=== PATIENT | female | born 1975 | race Caucasian/White ===

== ENCOUNTER 2017-05-18 18:01 | Emergency (ER) | payer BC ==
[~2017-05-18] VITALS: Ht 175.3 cm; Wt 113.4 kg
[2017-05-18] MEDS ORDERED: IV NORMAL SALINE 1000ML BAG 1,000 ML IV SCH (18:31)
--- NOTE | 2017-05-18 18:31 | PHYS DOC ---
Past Medical History Past Medical History: Other Additional Past Medical Histor: SQUAMOUS CELL CANCER Past Surgical History: Tonsillectomy, Other Additional Past Surgical Histo: SINUS, PART OF MOUTH REMOVED S/P CANCER, LYMP NODES REMOVED Alcohol Use: None Drug Use: None Adult General Chief Complaint Chief Complaint: ABDOMINAL PAIN HPI HPI Patient is a 41 year old female who presents with left lower flank pain that started at 4:00 today. She states she felt fine up until 4:00 that she started this pain in her left flank that radiates around into her left lower quadrant. She states is constant but it is worse at times. She felt nauseated but has not vomited. She denies any history of kidney stones, she denies any abdominal surgeries. 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 Review of Systems Review of Systems Constitutional: Denies fever or chills [] Eyes: Denies change in visual acuity, redness, or eye pain [] HENT: Denies nasal congestion or sore throat [] Respiratory: Denies cough or shortness of breath [] Cardiovascular: No additional information not addressed in HPI [] GI: Denies abdominal pain, nausea, vomiting, bloody stools or diarrhea [] : Denies dysuria or hematuria [] Musculoskeletal: Denies back pain or joint pain [] Integument: Denies rash or skin lesions [] Neurologic: Denies headache, focal weakness or sensory changes [] Endocrine: Denies polyuria or polydipsia [] All other systems were reviewed and found to be within normal limits, except as documented in this note. Current Medications Current Medications Current Medications Medications (Trade) Dose Ordered Sig/Leela Start Time Stop Time Status Last Admin Dose Admin Ketorolac Tromethamine (Toradol) 30 mg 1X ONCE 05/18/17 20:45 05/18/17 20:47 DC 05/18/17 20:48 30 MG Morphine Sulfate 4 mg PRN Q15MIN PRN 05/18/17 19:00 05/19/17 18:59 05/18/17 19:57 4 MG Ondansetron HCl (Zofran) 4 mg 1X ONCE 05/18/17 19:00 05/18/17 19:01 DC 05/18/17 19:06 4 MG Sodium Chloride 1,000 ml @ 1,000 mls/hr 1X ONCE 05/18/17 20:45 05/18/17 21:44 05/18/17 20:44 1,000 MLS/HR Tamsulosin HCl (Flomax) 0.4 mg 1X ONCE 05/18/17 20:45 05/18/17 20:47 DC 05/18/17 20:48 0.4 MG Allergies Allergies Allergies Coded Allergies Type Severity Reaction Last Updated Verified No Known Drug Allergies 05/18/17 No Physical Exam Physical Exam Constitutional: Well developed, well nourished, no acute distress, non-toxic appearance. [] HENT: Normocephalic, atraumatic, bilateral external ears normal, oropharynx moist, no oral exudates, nose normal. [] Eyes: PERRLA, EOMI, conjunctiva normal, no discharge. [] Neck: Normal range of motion, no tenderness, supple, no stridor. [] Cardiovascular:Heart rate regular rhythm, no murmur [] Lungs & Thorax: Bilateral breath sounds clear to auscultation [] Abdomen: Bowel sounds normal, soft, mild tender palpation in the left flank, no abdominal pain noted, no masses, no pulsatile masses. [] Skin: Warm, dry, no erythema, no rash. [] Back: No tenderness, positive for left sided CVA tenderness. [] Extremities: No tenderness, no cyanosis, no clubbing, ROM intact, no edema. [] Neurologic: Alert and oriented X 3, normal motor function, normal sensory function, no focal deficits noted. [] Psychologic: Affect normal, judgement normal, mood normal. [] Current Patient Data Vital Signs Vital Signs Date Time Temp Pulse Resp B/P (MAP) Pulse Ox O2 Delivery O2 Flow Rate FiO2 05/18/17 21:12 89 18 124/58 (80) 97 Room Air 05/18/17 18:05 98.1 98.1 Lab Values Laboratory Tests Test 05/18/17 18:15 05/18/17 18:16 White Blood Count 14.6 x10^3/uL (4.0-11.0) H Red Blood Count 4.65 x10^6/uL (3.50-5.40) Hemoglobin 13.1 g/dL (12.0-15.5) Hematocrit 39.5 % (36.0-47.0) Mean Corpuscular Volume 85 fL (79-100) Mean Corpuscular Hemoglobin 28 pg (25-35) Mean Corpuscular Hemoglobin Concent 33 g/dL (31-37) Red Cell Distribution Width 14.1 % (11.5-14.5) Platelet Count 349 x10^3/uL (140-400) Neutrophils (%) (Auto) 72 % (31-73) Lymphocytes (%) (Auto) 22 % (24-48) L Monocytes (%) (Auto) 5 % (0-9) Eosinophils (%) (Auto) 1 % (0-3) Basophils (%) (Auto) 0 % (0-3) Neutrophils # (Auto) 10.5 x10^3uL (1.8-7.7) H Lymphocytes # (Auto) 3.2 x10^3/uL (1.0-4.8) Monocytes # (Auto) 0.7 x10^3/uL (0.0-1.1) Eosinophils # (Auto) 0.2 x10^3/uL (0.0-0.7) Basophils # (Auto) 0.0 x10^3/uL (0.0-0.2) Prothrombin Time 13.1 SEC (11.7-14.0) Prothrombin Time INR 1.1 (0.8-1.1) PTT 32 SEC (24-38) Urine Collection Type Unknown Urine Color Yellow Urine Clarity Clear Urine pH 5.5 Urine Specific [place] >=1.030 Urine Protein Negative mg/dL (NEG-TRACE) Urine Glucose (UA) Negative mg/dL (NEG) Urine Ketones (Stick) Trace mg/dL (NEG) Urine Blood Large (NEG) Urine Nitrite Negative (NEG) Urine Bilirubin Negative (NEG) Urine Urobilinogen Dipstick 0.2 mg/dL (0.2 mg/dL) Urine Leukocyte Esterase Negative (NEG) Urine RBC 11-20 /HPF (0-2) Urine WBC 1-4 /HPF (0-4) Urine Squamous Epithelial Cells Many /LPF Urine Bacteria 0 /HPF (0-FEW) Urine Mucus Marked /LPF Sodium Level 140 mmol/L (136-145) Potassium Level 3.2 mmol/L (3.5-5.1) L Chloride Level 101 mmol/L (98-107) Carbon Dioxide Level 27 mmol/L (21-32) Anion Gap 12 (6-14) Blood Urea Nitrogen 12 mg/dL (7-20) Creatinine 0.9 mg/dL (0.6-1.0) Estimated GFR (Cockcroft-Gault) 69.3 Glucose Level 129 mg/dL (70-99) H Calcium Level 8.5 mg/dL (8.5-10.1) Total Bilirubin 0.2 mg/dL (0.2-1.0) Direct Bilirubin 0.1 mg/dL (0.0-0.2) Aspartate Amino Transferase (AST) 19 U/L (15-37) Alanine Aminotransferase (ALT) 32 U/L (14-59) Alkaline Phosphatase 97 U/L (46-116) Creatine Kinase 78 U/L (26-192) Creatine Kinase MB (Mass) < 0.5 ng/mL (0.0-3.6) Creatine Kinase MB Relative Index 0.6 % (0-4) Total Protein 7.9 g/dL (6.4-8.2) Albumin 3.8 g/dL (3.4-5.0) Lipase 113 U/L (73-393) Urine Opiates Screen Neg (NEG) Urine Methadone Screen Neg (NEG) Urine Barbiturates Neg (NEG) Urine Phencyclidine Screen Neg (NEG) Urine Amphetamine/Methamphetamine Neg (NEG) Urine Benzodiazepines Screen Neg (NEG) Urine Cocaine Screen Neg (NEG) Urine Cannabinoids Screen Neg (NEG) Urine Ethyl Alcohol Neg (NEG) POC Urine HCG, Qualitative Hcg negative (Negative) Laboratory Tests 05/18/17 18:15 Laboratory Tests 05/18/17 18:15 EKG EKG [] Radiology/Procedures Radiology/Procedures [facility] [address] [place] [address] IMAGING REPORT Signed PATIENT: GEORGIE CRUZ ACCOUNT: [id number] : 1975 LOCATION: ER AGE: 41 SEX: F EXAM STATUS: REG ER ORD. PHYSICIAN: KAENU OLVERA MD REASON: stone protocol, HEMATURIA PROCEDURE: CT ABDOMEN PELVIS WO CONTRAST CT abdomen and pelvis without contrast 05/18/2017 Clinical indication: Left flank pain, hematuria. COMPARISON: None. TECHNIQUE: Multiple CT images of the abdomen and pelvis were obtained without contrast according to standard protocol. *One or more of the following individualized dose reduction techniques were utilized for this examination: 1. Automated exposure control. 2. Adjustment of the mA and/or kV according to patient size. 3. Use of iterative reconstruction technique. Heart size is normal. There is a 0.6 cm noncalcified nodule in the right lung base series 2/image 40. There is severe hepatic steatosis. There is a 3.9 cm hypodensity and peripheral hepatic segment 8 series 2/image 45 which is incompletely characterized without contrast. Possible additional hepatic hypodensity in segment 2 measuring 1.7 cm series 2/image 42. Unenhanced contours of the spleen, adrenal glands, pancreas and gallbladder are grossly unremarkable. There is a nonobstructive 3 mm calculus in the inferior pole the right kidney. No right hydronephrosis. There is a 5 mm nonobstructive calculus at the left UVJ series 2/image 108 with upstream left periureteral and perinephric stranding. No pneumoperitoneum or abdominal free fluid. Abdominal aorta is normal in caliber. Small and large bowel loops are normal in caliber without obstruction. Urinary bladder is decompressed. Uterus is present though incompletely evaluated by CT. No pelvic free fluid. Grade 1 retrolisthesis L5 on S1. No destructive osseous lesions. IMPRESSION: 1. 5 mm nonobstructive calculus at the left UVJ. There is left periureteral and perinephric stranding which may be reactive or ascending urinary tract infection. 2. Tiny, 3 mm nonobstructive right renal calculus. 3. Tiny, 6 mm, right lung base noncalcified pulmonary nodule, indeterminate. Follow-up nonemergent CT chest is recommended. 4. Moderate diffuse hepatic steatosis. Two hepatic hypodensities which may more focal area of of steatosis, however technically indeterminate. Follow-up nonemergent MRI abdomen with contrast is recommended for further characterization. Electronically signed by: Rosa Nina MD (05/18/2017 8:00 PM) [facility] DICTATED and SIGNED BY: ROSA NINA MD DATE: 05/18/171951 CC: ERMIAS AMADOR; KEANU OLVERA MD ~ Impressions: 5 mm left sided stone Course & Med Decision Making Course & Med Decision Making Pertinent Labs and Imaging studies reviewed. (See chart for details) She received 2 L of normal saline, Toradol, Flomax and morphine for pain. Her pain is currently a 0. She's being discharged home. She is to follow-up with [facility] urology and strain her urine. Return precautions given. Dragon Disclaimer Dragon Disclaimer This electronic medical record was generated, in whole or in part, using a voice recognition dictation system. Departure Departure Impression: Primary Impression: Kidney calculi Disposition: HOME, SELF-CARE Condition: STABLE Patient Instructions: Kidney Stones Additional Instructions: You have a kidney stone on your left side and 3 on your right side. The left side is a one is causing your pain. Your being discharged home with narcotic pain medicine, Flomax, Zofran for nausea and will need to follow-up with [facility] urology group. Please follow instructions on the labels free prescriptions. Please call [facility] urology at [phone] and schedule follow-up appointment. Please strain your urine and catch a stone. If you have uncontrolled pain, nausea, fevers or other concerns please return back to the emergency department. Scripts Tamsulosin Hcl (FLOMAX) 0.4 Mg Cap.er.24h 1 CAP PO DAILY, #30 CAP Prov: KEANU OLVERA MD 05/18/17 Ondansetron Hcl (ZOFRAN) 4 Mg Tablet 1 TAB PO PRN Q6-8HRS, #5 TAB Prov: KEANU OLVERA MD 05/18/17 Hydrocodone/Apap 5-325 (NORCO 5-325 TABLET) 1 Each Tablet 1-2 TAB PO PRN Q6HRS Y for PAIN, #20 TAB 0 Refills Prov: KEANU OLVERA MD 05/18/17 KEANU OLVERA MD May 18, 2017 18:31
[2017-05-18 18:48] LABS: BASO % 0 % (0-3); EOS % 1 % (0-3); HEMATOCRIT 39.5 % (36.0-47.0); HEMOGLOBIN 13.1 g/dL (12.0-15.5); LYMPH # 3.2 x10^3/uL (1.0-4.8); LYMPH % 22 % (24-48); MEAN CORPUSCULAR HEMOGLOBIN 28 pg (25-35); MEAN CORPUSCULAR HGB CONC 33 g/dL (31-37); MEAN CORPUSCULAR VOLUME 85 fL (79-100); MONO % 5 % (0-9); NEUT % 72 % (31-73); PLATELET COUNT 349 x10^3/uL (140-400); RED BLOOD COUNT 4.65 x10^6/uL (3.50-5.40); RED CELL DISTRIBUTION WIDTH 14.1 % (11.5-14.5); WHITE BLOOD COUNT 14.6 x10^3/uL (4.0-11.0)
[2017-05-18 18:52] LABS: BILIRUBIN,URINE NEGATIVE (NEG); GLUCOSE,URINE NEGATIVE (NEG); NITRITE,URINE NEGATIVE (NEG); PH,URINE 5.5; PROTEIN,URINE NEGATIVE (NEG-TRACE); UROBILINOGEN,URINE 0.2 mg/dL (0.2 mg/dL)
[2017-05-18 18:55] LABS: BARBITURATES NEG (NEG); BENZODIAZEPINES NEG (NEG); CANNABINOIDS NEG (NEG); COCAINE NEG (NEG); METHADONE NEG (NEG); OPIATES NEG (NEG); PHENCYCLIDINE NEG (NEG)
[2017-05-18 18:59] LABS: BACTERIA,URINE 0 /HPF (0-FEW); INR 1.1 (0.8-1.1); PROTHROMBIN TIME PATIENT 13.1 SEC (11.7-14.0); SQUAMOUS EPITHELIAL CELL,UR MANY /LPF
[2017-05-18 19:00] LABS: CALCIUM 8.5 mg/dL (8.5-10.1); CREATININE 0.9 mg/dL (0.6-1.0); GFR 69.3; POTASSIUM 3.2 mmol/L (3.5-5.1)
[2017-05-18] MEDS ORDERED: ONDANSETRON PF 4 MG/2 ML VIAL. IV ONE (19:00)
[2017-05-18 19:05] LABS: ALBUMIN 3.8 g/dL (3.4-5.0); DIRECT BILIRUBIN 0.1 mg/dL (0.0-0.2); TOTAL BILIRUBIN 0.2 mg/dL (0.2-1.0); TOTAL PROTEIN 7.9 g/dL (6.4-8.2)
[2017-05-18] MEDS: MORPHINE SULFATE 4 MG/ML DISP.SYRIN. IV/SQ PRN ×2 (19:06→19:57)
[2017-05-18 19:12] LABS: CREATINE KINASE 78 U/L (26-192)
[2017-05-18 19:13] LABS: CKMB MASS < 0.5 ng/mL (0.0-3.6)
--- NOTE | 2017-05-18 20:04 | RAD ---
CT abdomen and pelvis without contrast 05/18/2017 Clinical indication: Left flank pain, hematuria. COMPARISON: None. TECHNIQUE: Multiple CT images of the abdomen and pelvis were obtained without contrast according to standard protocol. *One or more of the following individualized dose reduction techniques were utilized for this examination: 1. Automated exposure control. 2. Adjustment of the mA and/or kV according to patient size. 3. Use of iterative reconstruction technique. Heart size is normal. There is a 0.6 cm noncalcified nodule in the right lung base series 2/image 40. There is severe hepatic steatosis. There is a 3.9 cm hypodensity and peripheral hepatic segment 8 series 2/image 45 which is incompletely characterized without contrast. Possible additional hepatic hypodensity in segment 2 measuring 1.7 cm series 2/image 42. Unenhanced contours of the spleen, adrenal glands, pancreas and gallbladder are grossly unremarkable. There is a nonobstructive 3 mm calculus in the inferior pole the right kidney. No right hydronephrosis. There is a 5 mm nonobstructive calculus at the left UVJ series 2/image 108 with upstream left periureteral and perinephric stranding. No pneumoperitoneum or abdominal free fluid. Abdominal aorta is normal in caliber. Small and large bowel loops are normal in caliber without obstruction. Urinary bladder is decompressed. Uterus is present though incompletely evaluated by CT. No pelvic free fluid. Grade 1 retrolisthesis L5 on S1. No destructive osseous lesions. IMPRESSION: 1. 5 mm nonobstructive calculus at the left UVJ. There is left periureteral and perinephric stranding which may be reactive or ascending urinary tract infection. 2. Tiny, 3 mm nonobstructive right renal calculus. 3. Tiny, 6 mm, right lung base noncalcified pulmonary nodule, indeterminate. Follow-up nonemergent CT chest is recommended. 4. Moderate diffuse hepatic steatosis. Two hepatic hypodensities which may more focal area of of steatosis, however technically indeterminate. Follow-up nonemergent MRI abdomen with contrast is recommended for further characterization. Electronically signed by: Burton Nina MD (05/18/2017 8:00 PM) [facility]
[2017-05-18] MEDS ORDERED: IV NORMAL SALINE 1000ML BAG 1,000 ML IV ONE (20:45)
[2017-05-18] MEDS ORDERED: TAMSULOSIN 0.4 MG CAP.ER.24H. PO ONE (20:45)
[2017-05-18] MEDS ORDERED: KETOROLAC 30 MG/ML INJ. IV ONE (20:45)
[2017-05-18 21:42] VITALS: BP 115/55
[2017-05-18] MEDS ORDERED: HYDR-971 PO (21:46)
[2017-05-18] MEDS ORDERED: ONDA4TAB7 PO (21:46)
[2017-05-18] MEDS ORDERED: TAMS0.4C97 PO (21:46)
== END 2017-05-18 21:52 | disposition home or self-care (01) ==
LOC: ER 18:01
DX: N20.0 Calculus of kidney (principal)
CPT/HCPCS: 36415; 74176; 80048; 80076; 80307; 81001; 81025; 82553; 83690; 85025; 85610; 85730; 96361; 96374; 96375; 96376; 99285; J1885; J2270; J2405; J7030; G0479

== ENCOUNTER → 2017-06-04 | Outpatient (CLI) | payer BC | END | disposition home or self-care (01) | LOC: US 09:57 | DX: K76.0 Fatty (change of) liver, not elsewhere classified (principal); K76.9 Liver disease, unspecified | CPT/HCPCS: 76700 ==

== ENCOUNTER → 2017-07-15 | Outpatient (CLI) | payer BC ==
[2017-07-15] MEDS: GADOBUTROL 10 MMOL/10 ML VIAL IV ×2 (08:18)
[2017-07-15] MEDS: diphenhydrAMINE HCL 25 MG CAPSULE PO ×2 (12:18)
== END | disposition home or self-care (01) ==
LOC: KCIC MRI 07:38
DX: R93.2 Abnormal findings on diagnostic imaging of liver and biliary tract (principal)
CPT/HCPCS: 74183; A9585; Q0163

== ENCOUNTER → 2017-08-12 | Outpatient (CLI) | payer BC ==
[~2017-08-12] MED LIST: CONTRAST GIVEN MC
[2017-08-12] MEDS: IOHEXOL 300 MG/ML 100ML VIAL. IV (10:50)
== END | disposition home or self-care (01) ==
LOC: KCIC CT 09:40
DX: R91.1 Solitary pulmonary nodule (principal); K76.0 Fatty (change of) liver, not elsewhere classified; K76.89 Other specified diseases of liver
CPT/HCPCS: 71270; Q9967

== ENCOUNTER → 2017-10-10 | Outpatient (CLI) | payer BC | END | disposition home or self-care (01) | LOC: KCIC US 12:45 | DX: Z12.31 Encounter for screening mammogram for malignant neoplasm of breast (principal); N92.0 Excessive and frequent menstruation with regular cycle; I86.2 Pelvic varices; N88.8 Other specified noninflammatory disorders of cervix uteri | CPT/HCPCS: 76830; 76856; 77067 ==

== ENCOUNTER → 2017-10-22 | Outpatient (CLI) | payer BC | END | disposition home or self-care (01) | LOC: KCIC US 12:40 | DX: R92.2 Inconclusive mammogram (principal) | CPT/HCPCS: 76641 ==

== ENCOUNTER → 2018-06-06 | Outpatient (CLI) | payer BC ==
[~2018-06-06] MED LIST changes: -CONTRAST GIVEN MC; +HYDR-3164 PO; +ONDA4TAB7 PO; +TAMS0.4C97 PO
--- NOTE | 2018-06-06 14:01 | KCIC ---
3d digital tomography right unilateral History: Follow-up asymmetric tissue density medial right breast Technique: Right unilateral 3d digital tomographic views were obtained with [employer] and reviewed on a [employer] workstation. In addition, CAD - computer aided detection was utilized. Comparison: October 10, 2017. Findings: Breast Tissue Density D : The breast tissue is predominantly dense. Scattered fibroglandular elements may obscure underlying pathology. There are no suspicious masses, microcalcifications or areas of architectural distortion. Impression: No suspicious findings. BI-RADS Category 1: Negative. Normal interval followup with a bilateral mammogram in October. These results were given to the patient in person. The patient will receive a letter with the results in the mail. Your mammogram demonstrates that you have dense breast tissue, which could hide abnormalities, and if you have other risk factors for breast cancer that have been identified, you might benefit from supplemental screening tests that may be suggested by your ordering physician. Dense breast tissue, in and of itself, is a relatively common condition. This information is not provided to cause undue concern, but rather to raise your awareness and to promote discussion with your physician regarding the presence of other risk factors, in addition to dense breast tissue. A report of your mammography results will be sent to you and your physician. You should contact your physician if you have any questions or concerns regarding this report. A mammogram does not have 100% sensitivity and therefore a negative imaging study should not delay further work up of a suspicious abnormality. Patient information is entered into the [facility] reminder system using [place] with a target due date for the next screening mammogram. The patient will receive a reminder. "Our facility is accredited by the [employer] Mammography Program." Electronically signed by: Otto Shah III, MD (06/06/2018 1:57 PM) [id number]
== END | disposition home or self-care (01) ==
LOC: KCIC MAMMO 12:57
PROVIDERS: ATTEND Family Medicine
DX: Z09 Encounter for follow-up examination after completed treatment for conditions other than malignant neoplasm (principal)
CPT/HCPCS: 77065; G0279; 77061

== ENCOUNTER → 2018-11-27 | Outpatient (CLI) | payer BC ==
--- NOTE | 2018-11-27 16:57 | KCIC ---
Examination: Ultrasound pelvis HISTORY: History of abnormal uterine bleeding COMPARISON: 10/10/2017 FINDINGS: The uterus measures 10.5 x 5.4 x 5.2 cm. The endometrium is 1.2 cm in thickness. The right ovary measures 2.2 x 2.2 x 2.0 cm. The left ovary measures 3.4 x 2.8 x 3.7 cm. Blood flow identified in the right and left ovaries. Large nabothian cysts identified in the cervix. Masslike echogenicity identified along the inferior bladder wall is similar to prior exam measuring 2.6 x 1.7 x 1.4 cm. IMPRESSION: 1. Thickened appearing endometrium identified, could be phase of patient's menstrual cycle. However endometrial hyperplasia or neoplasm is not completely excluded. 2. 2.6 cm echogenicity identified along the inferior bladder wall similar to prior exam. 3. Large nabothian cysts. Electronically signed by: Tyree Mireles MD (11/27/2018 4:54 PM) [facility]
== END | disposition home or self-care (01) ==
LOC: KCIC US 10:56
PROVIDERS: ATTEND Obstetrics & Gynecology
DX: N88.8 Other specified noninflammatory disorders of cervix uteri (principal)
CPT/HCPCS: 76830; 76856

== ENCOUNTER 2019-03-27 19:12 | Emergency (ER) | payer BC ==
[~2019-03-27] VITALS: Ht 172.7 cm; Wt 112.0 kg
[2019-03-27] MEDS ORDERED: IV NORMAL SALINE 1000ML BAG 1,000 ML IV ONE (19:15)
[2019-03-27 19:36] LABS: BASO # 0.1 x10^3/uL (0.0-0.2); BASO % 1 % (0-3); EOS # 0.1 x10^3/uL (0.0-0.7); EOS % 1 % (0-3); HEMOGLOBIN 11.9 g/dL (12.0-15.5); LYMPH # 3.3 x10^3/uL (1.0-4.8); LYMPH % 27 % (24-48); MEAN CORPUSCULAR HEMOGLOBIN 27 pg (25-35); MEAN CORPUSCULAR HGB CONC 33 g/dL (31-37); MEAN CORPUSCULAR VOLUME 83 fL (79-100); MONO # 0.6 x10^3/uL (0.0-1.1); MONO % 5 % (0-9); NEUT # 8.3 x10^3/uL (1.8-7.7); NEUT % 67 % (31-73); PLATELET COUNT 430 x10^3/uL (140-400); RED BLOOD COUNT 4.33 x10^6/uL (3.50-5.40); RED CELL DISTRIBUTION WIDTH 14.8 % (11.5-14.5); WHITE BLOOD COUNT 12.4 x10^3/uL (4.0-11.0)
[2019-03-27 19:45] LABS: PROTHROMBIN TIME PATIENT 13.4 SEC (11.7-14.0)
[2019-03-27 19:54] LABS: CALCIUM 8.8 mg/dL (8.5-10.1); CREATININE 0.7 mg/dL (0.6-1.0); GFR 91.8; POTASSIUM 3.7 mmol/L (3.5-5.1)
[2019-03-27 19:59] LABS: ALBUMIN 3.7 g/dL (3.4-5.0); ALBUMIN/GLOBULIN RATIO 0.8 (1.0-1.7); MAGNESIUM 1.8 mg/dL (1.8-2.4); TOTAL BILIRUBIN 0.3 mg/dL (0.2-1.0); TOTAL PROTEIN 8.2 g/dL (6.4-8.2)
[2019-03-27 20:11] LABS: CREATINE KINASE 62 U/L (26-192)
[2019-03-27] MEDS ORDERED: IOHEXOL 350 MG/ML 100 ML VIAL. IV ONE (20:30)
[2019-03-27 20:44] LABS: PREG TEST PT QUAL NEGATIVE (NEG)
[2019-03-27] MEDS ORDERED: CONTRAST GIVEN. MC PRN (20:45)
--- NOTE | 2019-03-27 20:50 | RAD ---
Ultrasound of the right upper quadrant of the abdomen 03/27/2019 CLINICAL HISTORY: Right upper quadrant abdominal pain. TECHNIQUE: A real-time ultrasound examination right upper quadrant abdomen was. Multiple images were obtained. FINDINGS: Comparison is made to an MRI of the abdomen dated 07/15/2017. Images from the study are limited by the patient's large body habitus. The gallbladder is well-distended. No gallstones are visualized. The gallbladder wall thickness is within normal limits. No pericholecystic fluid is seen. The common bile duct measures 3 mm in diameter which is within normal limits. The liver is within the upper limits of normal in size measuring 18.5 cm in length. Increased echogenicity of the liver parenchyma is seen consistent with fatty infiltration. The visualized portions of pancreas and right kidney are within normal limits. No free fluid is seen. IMPRESSION: Fatty infiltration of the liver. Otherwise negative study. Electronically signed by: Gurwinder Conley MD (03/27/2019 8:47 PM) [facility]
[2019-03-27 20:55] LABS: BILIRUBIN,URINE NEGATIVE (NEG); CLARITY,URINE CLEAR; COLOR,URINE YELLOW; NITRITE,URINE NEGATIVE (NEG); PROTEIN,URINE NEGATIVE (NEG-TRACE); UROBILINOGEN,URINE 0.2 mg/dL (0.2 mg/dL)
[2019-03-27 21:03] LABS: BACTERIA,URINE FEW /HPF (0-FEW); SQUAMOUS EPITHELIAL CELL,UR MOD /LPF
--- NOTE | 2019-03-27 21:05 | PHYS DOC ---
Past Medical History Past Medical History: Hypertension, Other Additional Past Medical Histor: childhood leukemia, Past Surgical History: Other Additional Past Surgical Histo: SINUS, PART OF MOUTH REMOVED S/P CANCER, LYMP NODES REMOVED, Uterine polyp Additional Information: Nonsmoker Alcohol Use: None Drug Use: None Adult General Chief Complaint Chief Complaint: RIB PAIN HPI HPI 43-year-old female presents with report of right-sided lower chest and upper abdomen which is worse with deep inspiration. Patient reports pain came on suddenly today. Patient reports she went to urgent care and underwent a x-ray and also laboratory data. Patient reports d-dimer was elevated. Patient therefore sent to the ER for further evaluation. Patient denies any calf pain or swelling. Denies history of DVT/PE. Patient reports she does take progesterone. Reports surgery 2 months ago. Denies fever or chills. Review of Systems Review of Systems Constitutional: Denies fever or chills Eyes: Denies redness or eye pain HENT: Denies nasal congestion or sore throat Respiratory: Denies cough or shortness of breath Cardiovascular: Reports pleuritic chest pain; denies palpitations GI: Reports upper right abdominal pain; denies nausea or vomiting : Denies dysuria or hematuria Musculoskeletal: Denies back pain or joint pain Integument: Denies rash or skin lesions Neurologic: Denies headache, focal weakness or sensory changes Complete systems were reviewed and found to be within normal limits, except as documented in this note. Current Medications Current Medications Current Medications Medications (Trade) Dose Ordered Sig/Leela Start Time Stop Time Status Last Admin Dose Admin Famotidine (Pepcid Vial) 20 mg 1X ONCE 03/27/19 21:15 03/27/19 21:16 DC 03/27/19 21:07 20 MG Info (CONTRAST GIVEN -- Rx MONITORING) 1 each PRN DAILY PRN 03/27/19 20:45 03/27/19 22:21 DC Iohexol (Omnipaque 350 Mg/ml) 100 ml 1X ONCE 03/27/19 20:30 03/27/19 20:39 DC 03/27/19 20:59 100 ML Ketorolac Tromethamine (Toradol 15mg Vial) 15 mg 1X ONCE 03/27/19 21:15 03/27/19 21:16 DC 03/27/19 21:07 15 MG Sodium Chloride 1,000 ml @ 1,000 mls/hr 1X ONCE 03/27/19 19:15 03/27/19 20:14 DC 03/27/19 19:45 1,000 MLS/HR Allergies Allergies Allergies Coded Allergies Type Severity Reaction Last Updated Verified gadobutrol Allergy Intermediate 07/15/17 Yes Physical Exam Physical Exam Constitutional: Well developed, well nourished, no acute distress, non-toxic appearance HENT: Normocephalic, atraumatic, oropharynx moist Eyes: Conjunctiva normal, no discharge Neck: Normal range of motion, no tenderness, supple Cardiovascular: Heart rate normal, regular rhythm Lungs & Thorax: Bilateral breath sounds clear to auscultation, no wheezing Abdomen: Soft, right upper quadrant tenderness Skin: Warm, dry, no erythema, no rash Back: No tenderness, no CVA tenderness Extremities: No calf tenderness, ROM intact, no edema Neurologic: Alert and oriented X 3, normal motor function, normal sensory function, no focal deficits noted Psychologic: Affect normal, judgement normal Current Patient Data Vital Signs Vital Signs Date Time Temp Pulse Resp B/P (MAP) Pulse Ox O2 Delivery O2 Flow Rate FiO2 03/27/19 22:10 90 18 114/68 (83) 98 Room Air 03/27/19 19:21 98.2 98.2 Lab Values Laboratory Tests Test 03/27/19 19:25 03/27/19 20:51 White Blood Count 12.4 x10^3/uL (4.0-11.0) H Red Blood Count 4.33 x10^6/uL (3.50-5.40) Hemoglobin 11.9 g/dL (12.0-15.5) L Hematocrit 36.0 % (36.0-47.0) Mean Corpuscular Volume 83 fL (79-100) Mean Corpuscular Hemoglobin 27 pg (25-35) Mean Corpuscular Hemoglobin Concent 33 g/dL (31-37) Red Cell Distribution Width 14.8 % (11.5-14.5) H Platelet Count 430 x10^3/uL (140-400) H Neutrophils (%) (Auto) 67 % (31-73) Lymphocytes (%) (Auto) 27 % (24-48) Monocytes (%) (Auto) 5 % (0-9) Eosinophils (%) (Auto) 1 % (0-3) Basophils (%) (Auto) 1 % (0-3) Neutrophils # (Auto) 8.3 x10^3/uL (1.8-7.7) H Lymphocytes # (Auto) 3.3 x10^3/uL (1.0-4.8) Monocytes # (Auto) 0.6 x10^3/uL (0.0-1.1) Eosinophils # (Auto) 0.1 x10^3/uL (0.0-0.7) Basophils # (Auto) 0.1 x10^3/uL (0.0-0.2) Prothrombin Time 13.4 SEC (11.7-14.0) Prothrombin Time INR 1.1 (0.8-1.1) Activated Partial Thromboplast Time 31 SEC (24-38) Sodium Level 143 mmol/L (136-145) Potassium Level 3.7 mmol/L (3.5-5.1) Chloride Level 104 mmol/L (98-107) Carbon Dioxide Level 26 mmol/L (21-32) Anion Gap 13 (6-14) Blood Urea Nitrogen 12 mg/dL (7-20) Creatinine 0.7 mg/dL (0.6-1.0) Estimated GFR (Cockcroft-Gault) 91.8 BUN/Creatinine Ratio 17 (6-20) Glucose Level 98 mg/dL (70-99) Calcium Level 8.8 mg/dL (8.5-10.1) Magnesium Level 1.8 mg/dL (1.8-2.4) Total Bilirubin 0.3 mg/dL (0.2-1.0) Aspartate Amino Transferase (AST) 14 U/L (15-37) L Alanine Aminotransferase (ALT) 22 U/L (14-59) Alkaline Phosphatase 99 U/L (46-116) Creatine Kinase 62 U/L (26-192) Creatine Kinase MB (Mass) < 0.5 ng/mL (0.0-3.6) Creatine Kinase MB Relative Index % (0-4) Troponin I Quantitative < 0.017 ng/mL (0.000-0.055) CL-Bxl-X-Type Natriuretic Peptide 81 pg/mL (0-124) Total Protein 8.2 g/dL (6.4-8.2) Albumin 3.7 g/dL (3.4-5.0) Albumin/Globulin Ratio 0.8 (1.0-1.7) L Lipase 113 U/L (73-393) Serum Test, Qualitative Negative (NEG) Urine Collection Type Unknown Urine Color Yellow Urine Clarity Clear Urine pH 6.0 Urine Specific [place] 1.010 Urine Protein Negative mg/dL (NEG-TRACE) Urine Glucose (UA) Negative mg/dL (NEG) Urine Ketones (Stick) Negative mg/dL (NEG) Urine Blood Small (NEG) Urine Nitrite Negative (NEG) Urine Bilirubin Negative (NEG) Urine Urobilinogen Dipstick 0.2 mg/dL (0.2 mg/dL) Urine Leukocyte Esterase Large (NEG) Urine RBC 11-20 /HPF (0-2) Urine WBC 5-10 /HPF (0-4) Urine Squamous Epithelial Cells Mod /LPF Urine Bacteria Few /HPF (0-FEW) Urine Mucus Mod /LPF Laboratory Tests 03/27/19 19:25 Laboratory Tests 03/27/19 19:25 EKG EKG @2019 NSR at 82bpm, NO ST elevation, t wave inversion III and V1-V2 Radiology/Procedures Radiology/Procedures PROCEDURE: ABDOMEN LTD Ultrasound of the right upper quadrant of the abdomen 03/27/2019 CLINICAL HISTORY: Right upper quadrant abdominal pain. TECHNIQUE: A real-time ultrasound examination right upper quadrant abdomen was. Multiple images were obtained. FINDINGS: Comparison is made to an MRI of the abdomen dated 07/15/2017. Images from the study are limited by the patient's large body habitus. The gallbladder is well-distended. No gallstones are visualized. The gallbladder wall thickness is within normal limits. No pericholecystic fluid is seen. The common bile duct measures 3 mm in diameter which is within normal limits. The liver is within the upper limits of normal in size measuring 18.5 cm in length. Increased echogenicity of the liver parenchyma is seen consistent with fatty infiltration. The visualized portions of pancreas and right kidney are within normal limits. No free fluid is seen. IMPRESSION: Fatty infiltration of the liver. Otherwise negative study. Electronically signed by: Gurwinder Conley MD (03/27/2019 8:47 PM) [facility] PROCEDURE: CT ANGIOGRAPHY CHEST CTA scan of the Chest with Contrast (Pulmonary Embolism protocol) 03/27/2019 Clinical History: Pleuritic chest pain. Elevated d-dimer. Technique: After the intravenous administration of 100 cc of Omnipaque 350, contiguous, 0.625 mm axial sections were obtained through the chest. 2 mm axial and 3D MIP coronal and sagittal reconstructed images were obtained. One or more of the following individualized dose reduction techniques were utilized for this study: 1. Automated exposure control. 2. Adjustment of the mA and/or kV according to patient size. 3. Use of iterative reconstruction technique. Findings: Comparison is made to a CT scan of the chest dated 08/12/2017. No filling defect is seen within the major branches of either pulmonary artery. There is no CT evidence of pulmonary embolism. The heart and thoracic aorta are within normal limits. Minimal dependent subsegmental atelectasis is seen involving both lungs. No area of consolidation, pleural effusion or pneumothorax is seen. A 9 mm partially calcified nodule is seen involving the right lower lobe consistent with a granuloma. It is unchanged. Images through the upper abdomen demonstrate decreased attenuation of the liver parenchyma consistent with fatty infiltration. Impression: There is no CT evidence of pulmonary embolism. Course & Med Decision Making Course & Med Decision Making Pertinent Labs and Imaging studies reviewed. (See chart for details) Patient presents with right upper quadrant and lower chest discomfort which is worse with deep inspiration. History of positive d-dimer at urgent care. Pain noted on outpatient of right upper quadrant as well. EKG stable. Labs obtained and posted to chart. LFT/lipase within normal limits. Troponin also within normal limits. HEART score 2. Abdominal ultrasound without signs of acute c holecystitis. CTA chest without signs of PE or structural abnormality. Incidental granuloma appears stable. Copies of imaging reports provided to patient to give to her PCP/specialists. Patient stable for discharge with outpatient follow-up with PCP/GI/pain management. GI and pain management referrals provided. Discussed findings and plan with patient and family, who acknowledge understanding and agreement. Dragon Disclaimer Dragon Disclaimer This electronic medical record was generated, in whole or in part, using a voice recognition dictation system. Departure Departure Impression: Primary Impression: Pleuritic chest pain Disposition: HOME, SELF-CARE Condition: STABLE Referrals: ERMIAS AMADOR (PCP) DANIEL ROBLES MD Patient Instructions: Chest Pain (Nonspecific), Zimj-nw-Clvs, Pleurisy, Yhoi-dh-Fhki Scripts Famotidine (PEPCID) 20 Mg Tablet 20 MG PO HS, #14 TAB Prov: JOSE EDUARDO VARGAS DO 03/27/19 The HEART Score for CP Pts HEART Score for Chest Pain: HEART Score for Chest Pain Response (Comments) Value History Moderately Suspicious 1 ECG Normal 0 Age < 45 0 Risk Factors 1 or 2 Risk Factors 1 Troponin < Normal Limit 0 Total 2 Risk Factors: Risk Factors: DM, Current or recent (<one month) smoker, HTN, HLP, family history of CAD, obesity. Risk Scores: Score 0 - 3: 2.5% MACE over next 6 weeks - Discharge Home Score 4 - 6: 20.3% MACE over next 6 weeks - Admit for Clinical Observation Score 7 - 10: 72.7% MACE over next 6 weeks - Early Invasive Strategies JOSE EDUARDO VARGAS DO Mar 27, 2019 21:05
[2019-03-27] MEDS ORDERED: KETOROLAC 15 MG/ML VIAL. IVP ONE (21:15)
[2019-03-27] MEDS ORDERED: FAMOTIDINE 20 MG/2 ML VIAL IVP ONE (21:15)
--- NOTE | 2019-03-27 21:49 | RAD ---
CTA scan of the Chest with Contrast (Pulmonary Embolism protocol) 03/27/2019 Clinical History: Pleuritic chest pain. Elevated d-dimer. Technique: After the intravenous administration of 100 cc of Omnipaque 350, contiguous, 0.625 mm axial sections were obtained through the chest. 2 mm axial and 3D MIP coronal and sagittal reconstructed images were obtained. One or more of the following individualized dose reduction techniques were utilized for this study: 1. Automated exposure control. 2. Adjustment of the mA and/or kV according to patient size. 3. Use of iterative reconstruction technique. Findings: Comparison is made to a CT scan of the chest dated 08/12/2017. No filling defect is seen within the major branches of either pulmonary artery. There is no CT evidence of pulmonary embolism. The heart and thoracic aorta are within normal limits. Minimal dependent subsegmental atelectasis is seen involving both lungs. No area of consolidation, pleural effusion or pneumothorax is seen. A 9 mm partially calcified nodule is seen involving the right lower lobe consistent with a granuloma. It is unchanged. Images through the upper abdomen demonstrate decreased attenuation of the liver parenchyma consistent with fatty infiltration. Impression: There is no CT evidence of pulmonary embolism. Electronically signed by: Gurwinder Conley MD (03/27/2019 9:46 PM) [facility]
[2019-03-27] MEDS ORDERED: FAMO-63 PO (22:00)
[2019-03-27 22:10] VITALS: BP 114/68
--- NOTE | 2019-03-29 13:32 | EKG ---
[facility] [address] [place] [address] Test Date: 2019-03-27 Test Time: 20:19:09 Pat Name: GEORGIE CRUZ Department: Room: Gender: F Emt/Paramedic: : 1975 Requested By: JOSE EDUARDO VARGAS Order Number: [id number] Reading MD: Measurements Intervals [place] Rate: 82 P: 44 [place]: 184 QRS: 12 QRSD: 90 T: 11 QT: 352 QTc: 414 Interpretive Statements SINUS RHYTHM NORMAL ECG RI6.01 No previous ECG available for comparison
== END 2019-03-27 22:10 | disposition home or self-care (01) ==
LOC: ER 19:12
DX: R07.81 Pleurodynia (principal); I10 Essential (primary) hypertension; R10.11 Right upper quadrant pain; Z88.8 Allergy status to other drugs, medicaments and biological substances
CPT/HCPCS: 36415; 71275; 76705; 80053; 81001; 82553; 83690; 83735; 83880; 84484; 84703; 85025; 85610; 85730; 87086; 93005; 96374; 96375; 99285; J1885; J3490; J7030; Q9967

== ENCOUNTER → 2019-06-05 | Outpatient (CLI) | payer BC ==
[~2019-06-05] MED LIST changes: +FAMO-63 PO
--- NOTE | 2019-06-05 18:33 | KCIC ---
BILATERAL SCREENING MAMMOGRAM, 3-D History: Routine screening. Comparison: Bilateral mammogram October 10, 2017. Technique: MLO and CC digital tomosynthesis (3D) images obtained. Radiologist reviewed these images on dedicated workstation. Findings: Breast Tissue Density D :The breasts are extremely dense, which lowers the sensitivity of mammography. There are no dominant masses, suspicious microcalcifications, or architectural distortion. IMPRESSION: No mammographic evidence of malignancy. Recommend routine screening. BI-RADS category 1: Negative. The images were reviewed with computer-aided detection. Patient information is entered into reminder system with a target due date for the next screening mammogram. Mammography is the most sensitive method for finding small breast cancers, but it does not detect them all and is not a substitute for careful clinical examination. A negative mammogram does not negate a clinically suspicious finding and should not result in delay in biopsying a clinically suspicious abnormality. "Our facility is accredited by the [employer] Mammography Program." Electronically signed by: Morris Guy MD (06/05/2019 6:30 PM) [id number]
== END | disposition home or self-care (01) ==
LOC: KCIC MAMMO 15:20
PROVIDERS: ATTEND Family Medicine
DX: Z12.31 Encounter for screening mammogram for malignant neoplasm of breast (principal)
CPT/HCPCS: 77063; 77067

== ENCOUNTER → 2020-12-06 | Outpatient (CLI) | payer BC ==
--- NOTE | 2020-12-06 16:41 | KCIC ---
Bilateral digital screening mammograms with 3-D tomosynthesis: Reason for examination: Routine screening. Comparison is made to previous studies dated back to 10/10/2017. Bilateral mammograms in CC and oblique projections were obtained with 2-D imaging and 3-D tomosynthes is imaging on a Siemens Inspiration unit and reviewed on the workstation. Interpretation was made wit h the benefit of CAD. The skin and nipples show no abnormalities. No abnormal axillary lymph nodes are seen. The breast par enchyma is extremely dense. (Breast density: Category D.) There appears to be a nodular density poste rior medially in the right breast seen on cc view only. Recommend further evaluation with ultrasound. There are no other new dominant masses, suspicious calcifications or architectural distortion. Impression: Nodular density at the posterior medial right breast on cc view. Recommend further evaluation. BI-RADS Category 0: Incomplete: Need additional imaging evaluation. "Our facility is accredited by the [employer] Mammography Program.". Your patient's mammogram demonstrates that she has dense breast tissue (breast density category C or D), which could hide abnormalities, and if she has other risk factors for breast cancer that have bee n identified, she might benefit from supplemental screening tests that may be suggested by you as her ordering physician. Dense breast tissue, in and of itself, is a relatively common condition. Therefo re, this information is not provided to cause undue concern, but rather to raise your awareness and t o promote discussion with your patient regarding the presence of other risk factors, in addition to d ense breast tissue. Your patient's mammography results will be sent to her. BI-RAD Category 0: Incomplete. Needs additional imaging evaluation. "Our facility is accredited by the [employer] Mammography Program." This patient's information has been entered into a reminder system for the patient to be notified wit h the results of her examination and a target date for the next mammogram. Electronically signed by: Antoinette Longoria MD (12/06/2020 4:39 PM) [email or web address]
== END ==
LOC: KCIC MAMMO 15:00
PROVIDERS: ATTEND Family Medicine
DX: Z12.31 Encounter for screening mammogram for malignant neoplasm of breast (principal)
CPT/HCPCS: 77063; 77067

== ENCOUNTER → 2020-12-15 | Outpatient (CLI) | payer BC ==
--- NOTE | 2020-12-15 14:04 | KCIC ---
Right breast ultrasound: Reason for examination: Parenchymal asymmetry on screening mammogram. Comparison is made to mammographic exam dated 12/06/2020. Ultrasound examination of the right breast and axilla was performed. At the 4:00 position 6 cm from the nipple, there is a small 4.5 mm circumscribed lesion with a fibroc ystic appearance which shows no vascularity. No other cystic or solid nodules are seen. No abnormal a ppearing lymph nodes are seen in the axilla. IMPRESSION: 4.5 mm fibrocystic lesion at the 4:00 position 6 cm from the nipple. No other focal abnormality seen in the right breast. Recommend 3 month follow-up with right breast mammograms and ultrasound. BI-RADS Category 3: Probably Benign. "Our facility is accredited by the [employer] Mammography Program." This patient's information has been entered into a reminder system for the patient to be notified wit h the results of her examination and a target date for the next mammogram. Electronically signed by: Antoinette Longoria MD (12/15/2020 2:01 PM) [email or web address]
== END ==
LOC: KCIC US 12:54
PROVIDERS: ATTEND Family Medicine
DX: N60.11 Diffuse cystic mastopathy of right breast (principal)
CPT/HCPCS: 76641

== ENCOUNTER → 2021-05-02 | Outpatient (CLI) | payer BC, OTHER ==
--- NOTE | 2021-05-02 11:37 | KCIC ---
Right breast diagnostic digital mammograms with 3-D tomosynthesis: Reason for examination: Follow-up nodules. Comparison is made to previous studies dated back to 10/10/2017. Right breast mammograms in CC and oblique projections were obtained with 2-D imaging and 3-D tomosynt hesis imaging on a Siemens Inspiration unit and reviewed on the workstation. Interpretation was made with the benefit of CAD. The skin and nipple show no abnormalities. No abnormal axillary lymph nodes are seen. The breast pare nchyma is extremely dense. (Breast density: Category D.) There appear to be small nodular densities i n the right breast at the 12:00 position 1.5 cm from the nipple measuring 4.5 mm in size, posterior m edially at approximately the 3:00 position approximately 9.5 cm from the nipple measuring 1 cm in siz e and at the 4:00 position 8.5 cm from the nipple measuring 6 mm in size. No suspicious calcification s are seen. Impression: Normal nodular densities at the 12:00 A, 3:00 B and 4:00 B positions of the right breast. Ultrasound to follow. Your patient's mammogram demonstrates that she has dense breast tissue (breast density category C or D), which could hide abnormalities, and if she has other risk factors for breast cancer that have bee n identified, she might benefit from supplemental screening tests that may be suggested by you as her ordering physician. Dense breast tissue, in and of itself, is a relatively common condition. Therefo re, this information is not provided to cause undue concern, but rather to raise your awareness and t o promote discussion with your patient regarding the presence of other risk factors, in addition to d ense breast tissue. Your patient's mammography results will be sent to her. BI-RAD Category 0: Incomplete. Needs additional imaging evaluation. Right breast ultrasound: Right whole breast ultrasound including evaluation of all 4 quadrants and the retroareolar and axilla ry regions of the right breast was performed. In the retroareolar 12:00 position, there is some cystic ductal ectasia. At the 3:00 position 7.5 cm from the nipple, there is subtle decreased echogenicity. This may be fibrocystic but close follow-up is recommended with evaluation in 3 months. At the 4:00 position 6 cm from the nipple, there is a 3.2 mm hypoechoic fibrocystic lesion which has shown a slight decrease in size. IMPRESSION: Cystic ductal ectasia in the retroareolar 12:00 position. Decreasing size of a fibrocystic lesion at the 4:00 position 6 cm from the nipple. Subtle area of decreased echogenicity at the 3:00 position 7.5 cm from the nipple. This may be fibroc ystic but recommend close follow-up with reevaluation with right breast ultrasound in 3 months. BI-RADS Category 3: Probably Benign. "Our facility is accredited by the [employer] Mammography Program." This patient's information has been entered into a reminder system for the patient to be notified wit h the results of her examination and a target date for the next mammogram. Electronically signed by: Antoinette Longoria MD (05/02/2021 11:35 AM) [email or web address]
== END ==
LOC: KCIC MAMMO 09:51
PROVIDERS: ATTEND Family Medicine
DX: R92.8 Other abnormal and inconclusive findings on diagnostic imaging of breast (principal)
CPT/HCPCS: 76641; 77065; G0279; 77061

== ENCOUNTER → 2021-08-22 | Outpatient (CLI) | payer OTHER ==
--- NOTE | 2021-08-22 16:08 | KCIC ---
Right breast ultrasound: Reason for examination: Follow-up parenchymal changes. Comparison is made to previous study dated 05/02/2021. Ultrasound examination of the right breast and axillary regions of the right breast was performed. There is some ductal ectasia in the retroareolar position. The small 3 mm nodule at the 4:00 position 6 cm from the nipple continues to have a benign fibrocystic appearance. At the 3:00 position 7.5 cm from the nipple however there is still a subtle area of nodularity measuring approximately 4.5 mm in greatest dimension with irregular margination. Further evaluation with ultrasound-guided biopsy shoul d be considered. No other cystic or solid nodules are seen. No abnormal appearing lymph nodes are see n in the axilla. IMPRESSION: Subtle area of nodularity measuring 4.5 mm in greatest dimension at the 3:00 position 7.5 cm from the nipple which shows irregular margination. Recommend ultrasound-guided biopsy. BI-RADS Category 4: Suspicious. These findings have been discussed with the patient and the nurse practitioner, Portia Morrison was not ified about these findings at 4:00 PM on 01/22/2022. "Our facility is accredited by the [employer] Mammography Program." Electronically signed by: Antoinette Longoria MD (08/22/2021 4:05 PM) [email or web address]
== END ==
LOC: KCIC US 13:55
PROVIDERS: ATTEND Nurse Practitioner
DX: N63.14 Unspecified lump in the right breast, lower inner quadrant (principal)
CPT/HCPCS: 76641